=== PATIENT | female | born 1945 | race Caucasian/White ===

== ENCOUNTER 2022-09-11 06:27 | Emergency (ER) | payer OTHER, MEDICAID ==
[~2022-09-11] VITALS: Ht 152.4 cm; Wt 53.5 kg
[2022-09-11 06:29] VITALS: BP 140/80
[2022-09-11 07:27] VITALS: BP 135/78
--- NOTE | 2022-09-11 07:28 | NUR ---
PT RECEIVED, CARE ASSUMED. PT BIB EMS FROM SNF FOR EVALUATION OF ABRASION, CONTUSION TO RIGHT SIDE OF FACE S/P FALL OFF OF BED. CONNECTED TO TELE MONITOR. AWAITING TO BE SEEN BY
[2022-09-11 08:36] LABS: ALBUMIN 3.8 g/dL (3.4-5.0); ANION GAP 17.4 (8-16); ASPARTATE AMINOTRANSFERASE 24 U/L (15-37); CARBON DIOXIDE 24.4 mmol/L (21-32); CHLORIDE 103 mmol/L (98-107); CREATININE 0.8 mg/dL (0.6-1.3); GLUCOSE 104 mg/dL (74-106); POTASSIUM 3.8 mmol/L (3.5-5.1); SODIUM SERUM 141 mmol/L (136-145); TOTAL BILIRUBIN 0.4 mg/dL (0.0-1.0); UREA NITROGEN, BLOOD 19 mg/dL (7-18)
[2022-09-11 09:36] LABS: BASOPHILS # (AUTO) 0.1 K/uL (0.00-0.22); BASOPHILS % (AUTO) 0.5 % (0.0-2.0); HEMATOCRIT 48.4 % (36-48); HEMOGLOBIN 16.1 g/dL (12.0-16.0); LYMPHOCYTES # (AUTO) 0.8 K/uL (2.5-16.5); LYMPHOCYTES % (AUTO) 6.1 % (20.5-51.1); MEAN CORPUSCULAR HEMOGLOBIN 30 pg (27-31); MEAN CORPUSCULAR HGB CONC 33 g/dL (33-37); MEAN CORPUSCULAR VOLUME 89.6 fL (80-94); MONOCYTES # (AUTO) 0.8 K/uL (0.8-1.0); MONOCYTES % (AUTO) 5.9 % (1.7-9.3); NEUTROPHILS # (AUTO) 11.4 K/uL (1.8-7.7); NEUTROPHILS % (AUTO) 87.5 % (42.2-75.2); PLATELET COUNT (AUTO) 238 K/uL (140-450); RED CELL DISTRIBUTION WIDTH 13.9 % (11.6-13.7)
[2022-09-11 14:44] VITALS: BP 119/75
--- NOTE | 2022-09-11 14:49 | NUR ---
PT IS STABLE. NOTED ALL V/S. REPORT GIVEN TO [facility]. PT TRANSPORT BACK TO FACILITY
--- NOTE | 2022-09-11 14:50 | NUR ---
Patient discharged with v/s stable. Written and verbal after care instructions given and explained. Patient verbalized understanding. Ambulance Transport with to snf. All questions addressed prior to discharge. Advised to follow up with PMD.
== END 2022-09-11 14:50 | disposition home or self-care (01) ==
LOC: MED 06:27
DX: S00.83XA Contusion of other part of head, initial encounter (principal); F03.90 Unspecified dementia, unspecified severity, without behavioral disturbance, psychotic disturbance, mood disturbance, and anxiety; R07.9 Chest pain, unspecified; W06.XXXA Fall from bed, initial encounter; Y93.89 Activity, other specified; Y92.89 Other specified places as the place of occurrence of the external cause; Y99.8 Other external cause status
CPT/HCPCS: 36415; 70450; 71045; 72125; 72170; 80053; 84484; 85025; 93005; 99285